=== PATIENT | male | born 1955 | race Caucasian/White ===

== ENCOUNTER 2018-06-05 07:38 | Day surgery (SDC) | payer BC, MEDICARE ==
[2018-06-02 08:21] VITALS: BMI 40.6
[~2018-06-05 07:38] MED LIST: LACTATED RINGERS 1,000 ML IV SCH; LIDOCAINE 1% 20 ML VIAL (10MG/ML) FOR IV START INTRADERMA PRN
[2018-06-05] MEDS ORDERED: LACTATED RINGERS 1,000 ML IV ONE (08:20)
[2018-06-05 08:21] VITALS: TEMP 98.1
[2018-06-05 08:25] LABS: Glucose,Whole Blood 138 mg/dL (75-99)
[2018-06-05] MEDS ORDERED: PROPOFOL 10 MG/ML 20 ML VIAL IV ONE (09:10)
[2018-06-05] MEDS ORDERED: LIDOCAINE 1% INJ 10MG/ML (20 ML MDV) ONE (09:10)
[2018-06-05] MEDS ORDERED: KETAMINE 10 MG/ML 20 ML VIAL ONE (09:10)
--- NOTE | 2018-06-05 09:54 | P.PCN ---
Date of Procedure: 06/05/18 Procedure(s) Performed: Procedure: Colonoscopy and polypectomy. Preoperative diagnosis: Screening for neoplasia. Postoperative diagnosis: 1. Small polyps right colon snared but not retrieved. 2. Less than ideal preparation. 3. Diverticulosis with no evidence of acute diverticulitis or strictures. Preparation: HalfLytely prep. Sedation: Was provided by anesthesia. Brief clinical history: The patient is a 63-year-old male who is scheduled for this evaluation because of change in bowel habits with intermittent diarrhea that he blames on his medications. He had a prior exam 10 years ago. The patient has no significant complaints, bleeding or anemia. Procedure: With the patient on his left lateral decubitus position and after informed consent and adequate sedation, the perianal area was inspected and it did not show any fissures or fistulas. There were no masses felt on digital rectal examination. The Olympus CFH 190L colonoscope was then inserted in the rectum in the usual fashion and advanced to the cecum. Unfortunately, the preparation was less than ideal and there was thick fecal secretions and fecal debris that I could not wash or suction completely. There were couple small polyps in the right side which I snared but they were not recovered by suction at the time of this dictation. There could have been other diminutive/small polyps that could have been missed because of his preparation. There were no large polyps or tumors. The mucosa appeared healthy. Several diverticular orifices were seen scattered on the right side with no evidence of acute diverticulitis or strictures with occasional diverticula in the sigmoid. I retroflexed the endoscope in the rectum before the endoscope was withdrawn. The patient tolerated the procedure well. Plan: The patient was reassured. Discussed dietary measures. I would consider repeat exam in 3 years because of his less than ideal preparation. He will follow up with you as planned and I will keep you updated on his progress.
[2018-06-05 10:02] VITALS: BP 120/78; PULSE 92; RESP 18
[2018-06-05 10:25] LABS: Glucose,Whole Blood 131 mg/dL (75-99)
== END 2018-06-05 10:31 | disposition home or self-care (01) ==
LOC: ORWHC2ENDO 07:38
DX: K63.5 Polyp of colon (principal); R19.4 Change in bowel habit; R19.7 Diarrhea, unspecified; K57.30 Diverticulosis of large intestine without perforation or abscess without bleeding; E11.9 Type 2 diabetes mellitus without complications; I10 Essential (primary) hypertension; M10.9 Gout, unspecified; Z87.891 Personal history of nicotine dependence; Z79.84 Long term (current) use of oral hypoglycemic drugs; Z79.899 Other long term (current) drug therapy; Z96.643 Presence of artificial hip joint, bilateral
CPT/HCPCS: 45385; J2001; J2704